=== PATIENT | male | born 1935 | race Caucasian/White ===

== ENCOUNTER 2017-04-29 03:37 | Observation (INO) | payer OTHER ==
[~2017-04-29] VITALS: Ht 171.4 cm; Wt 82.3 kg
[~2017-04-29 03:37] MED LIST: Ascorbic Acid,Ester- PO; Chlor-Trimeton PO; OMEGA 3-6-91200 MG PO; PYRIDOXINE,VIT100 MG PO; Selenium PO; Sudafed PO; VITAMINS; Vicodin,Norco 5/325 PO; Vitamin B-12 PO
[2017-04-29] MEDS ORDERED: ASCORBIC ACID500 MG PO (09:06)
[2017-04-29] MEDS ORDERED: VITAMIN B-6100 MG PO (09:07)
[2017-04-29] MEDS ORDERED: CYANOCOBALAM1000 MCG PO (09:07)
[2017-04-29] MEDS ORDERED: PSEUDOEPHEDRINE30 MG PO (09:08)
[2017-04-29] MEDS ORDERED: LOSARTAN POTAS100 MG PO (09:08)
[2017-04-29] MEDS ORDERED: CHLOR-TRIMETON4 MG PO (09:08)
[2017-04-29] MEDS ORDERED: [UNRECOGNIZED DRUG - OTHER] PO (09:09)
[2017-04-29 10:05] LABS: BODY FLUID RBC'S 17000 /MM^3 (0-100)
[2017-04-29 10:06] LABS: BODY FLUID WBC'S 180 /MM^3 (0-500)
[2017-04-29 10:20] LABS: POLYNUCLEAR WBC'S 16 % (0-25)
[2017-04-29 10:21] LABS: MONONUCLEAR WBC'S 84 %
[2017-04-29 10:27] LABS: CRYSTALS NO CRYSTALS SEEN
[2017-04-29 10:35] LABS: BODY FLUID EOSINOPHILS 0 % (0-25)
[2017-04-29 15:10] VITALS: BP 167/75
[2017-04-29 19:01] VITALS: BP 168/78
[2017-04-30 00:23] VITALS: BP 170/80
[2017-04-30 04:53] VITALS: BP 168/80
[2017-04-30 08:53] VITALS: BP 165/86
[2017-04-30 11:24] VITALS: BP 135/62
[2017-04-30] MEDS ORDERED: TYLENOL REGULA325 MG PO (11:27)
== END 2017-04-30 13:58 | disposition home or self-care (01) ==
LOC: EME 03:37 → EDOF 08:46 → 5WEST 15:03
PROVIDERS: Physician Assistant
PROC: 3E0U33Z Introduction of Anti-inflammatory into Joints, Percutaneous Approach (ICD-10-PCS; principal; 2017-04-29)
DX: M25.462 Effusion, left knee (principal); R26.9 Unspecified abnormalities of gait and mobility; M19.90 Unspecified osteoarthritis, unspecified site; I10 Essential (primary) hypertension; Z96.612 Presence of left artificial shoulder joint
CPT/HCPCS: 73564; 87205; 89051; 89060; 99281; 99284; G0378; G8978 GP CH; G8979 GP CH; G8980 GP CH; J1650; J3301